=== PATIENT | male | born 1995 | race Asian ===

== ENCOUNTER 2017-04-27 09:06 | Emergency (ER) | payer OTHER ==
[~2017-04-27] VITALS: Ht 182.9 cm; Wt 87.2 kg
[2017-04-27 09:11] VITALS: Ht 182.9 cm; Wt 87.2 kg
[2017-04-27] MEDS ORDERED: SODIUM CHLORIDE 0.9% 1000ML 1,000 ML IV STA (09:39)
[2017-04-27] MEDS ORDERED: ONDANSETRON INJ 2 MG/ML 2 ML VIAL IV STA (09:53)
[2017-04-27] MEDS ORDERED: MoRPHine SULFATE 10 MG/ML CARP/VIAL IV STA (09:53)
[2017-04-27 09:54] LABS: BASO % 0.4 %; BASO ABS # 0.02 K/uL (0-0.2); COMPLETE YES; EOS % 4.1 %; HEMATOCRIT 46.6 % (42-52); IG% 0.2 %; LYMPH % 31.5 %; LYMPH ABS # 1.62 K/uL (1.2-3.4); MEAN CELL VOLUME 85.3 fL (80-100); MEAN CORPUSCULAR HEMOGLOBIN 28.8 pg (25-34); MEAN CORPUSCULAR HGB CONC 33.7 g/dl (32-36); MEAN PLATELET VOLUME 10.7 fL (7.4-10.4); MONO % 8.2 %; NEUT % 55.6 %; PLATELET COUNT 230 K/uL (130-400); RED BLOOD COUNT 5.46 M/uL (4.7-6.1); WHITE BLOOD COUNT 5.15 K/uL (4.8-10.8)
[2017-04-27] MEDS ORDERED: TAMSULOSIN HCL 0.4 MG CAP PO ONE (10:00)
--- NOTE | 2017-04-27 10:22 | DIAGNOSTIC IMAGING REPORT ---
CT OF THE ABDOMEN AND PELVIS WITHOUT CONTRAST, STONE PROTOCOL CLINICAL HISTORY: Right flank pain. COMPARISON STUDY: None. TECHNIQUE: Helical axial images of the abdomen and pelvis were obtained without IV or oral contrast according to renal stone protocol. A dose lowering technique was utilized adhering to the principles of ALARA. FINDINGS: A 4 mm x 2 mm proximal right ureteral calculus, located at the L4 level, results in mild right hydroureteronephrosis with mild perinephric and periureteral infiltration. Two small left renal calculi measure up to 3 mm. There are no left ureteral calculi. Unenhanced images of the liver, spleen, adrenal glands and pancreas are normal. There is no evidence for a bowel obstruction. The appendix is normal. There is no ascites. No suspicious skeletal lesions are identified. IMPRESSION: 1. 4 mm x 2 mm proximal right ureteral calculus which results in mild right hydroureteronephrosis. 2. Left-sided nephrolithiasis. Electronically signed by: Bao Trinidad M.D. 04/27/2017 10:20 AM Dictated Date/Time: 04/27/2017 10:14 AM
[2017-04-27 10:23] LABS: URINE APPEARANCE CLEAR (CLEAR); URINE BILIRUBIN NEG (NEG); URINE COLOR YELLOW; URINE NITRITE NEG (NEG); URINE SPECIFIC GRAVITY 1.026 (1.000-1.030); UROBILINOGEN NEG (NEG); ZZUR CULT IF INDIC CLEAN CATCH NO
[2017-04-27 10:25] LABS: MANUAL MICROSCOPIC REQUIRED? NO; REVIEW REQ? NO
[2017-04-27] MEDS ORDERED: ACETAMINOPHEN 500 MG TAB PO STA (10:41)
[2017-04-27] MEDS ORDERED: TAMS0.4C38 PO (11:11)
[2017-04-27] MEDS ORDERED: HYDR-5688 PO (11:11)
[2017-04-27] MEDS ORDERED: ONDA4TAB10 SL (11:11)
[2017-04-27 11:18] LABS: BUN/CREATININE RATIO 9.4 (10-20); CALCIUM 9.5 mg/dl (8.5-10.1); CREATININE 1.2 mg/dl (0.60-1.40); POTASSIUM 3.8 mmol/L (3.5-5.1)
--- NOTE | 2017-04-27 11:24 | EMERGENCY ROOM VISIT NOTE ---
History First contact with patient: 09:21 Chief Complaint: FLANK PAIN Stated Complaint: RT SIDED FLANK/BACK PAIN History of Present Illness The patient is a 21 year old male who presents to the Emergency Room with complaints of right flank pain which started at 7:30 this morning. She states he states it started in the back and then radiated into the groin. He rated the pain at a 9-10. The patient went to [facility] for his symptoms and was given Toradol 60 mg IM. He states his pain went down to a 1 out of 10. The patient denies any urinary symptoms of frequency, urgency, dysuria or hematuria. The patient denies any nausea or vomiting. The patient was told to come to the emergency room from [facility]. The patient does admit that he had similar symptoms on Thursday that lasted about 30 minutes the patient denies any history of kidney stones. The patient denies any family history of kidney stones. The patient denies any diarrhea. Review of Systems 10 system review was performed and was negative unless stated otherwise history of present illness. Social History Smoking Status: Never Smoker Alcohol Use: none Drug Use: none Marital Status: single Occupation Status: [employer] student Current/Historical Medications Scheduled Ondasetron Odt (Zofran Odt), 4 MG SL Q6H Tamsulosin Hcl (Flomax), 0.4 MG PO DAILY Scheduled PRN Hydrocodone/Acetaminophen 5MG/325MG (Wilcox 5MG/325MG), 1-2 TABLET PO Q6 PRN for Pain Physical Exam Vital Signs Date Time Temp Pulse Resp B/P (MAP) Pulse Ox O2 Delivery O2 Flow Rate FiO2 04/27/17 10:35 38.6 69 16 132/77 97 04/27/17 09:11 36.6 70 18 138/84 97 Room Air Physical Exam GENERAL: 21-year-old male appears in no acute distress. MENTAL Status: Alert and oriented 3. MOUTH: Mucosa is moist NECK: Supple, no lymphadenopathy noted. No carotid bruits noted. LUNGS: Clear auscultation without wheezes rales or rhonchi. CARDIAC: Regular rate and rhythm without murmur. Pulses is full and equal throughout. BACK: Right CVA tenderness noted. ABDOMEN: Positive bowel sounds all 4 quadrants. Soft, nontender to palpation without organomegaly or masses. EXTREMITIES: No cyanosis or edema noted. Medical Decision & Procedures ER Provider Diagnostic Interpretation: CT OF THE ABDOMEN AND PELVIS WITHOUT CONTRAST, STONE PROTOCOL CLINICAL HISTORY: Right flank pain. COMPARISON STUDY: None. TECHNIQUE: Helical axial images of the abdomen and pelvis were obtained without IV or oral contrast according to renal stone protocol. A dose lowering technique was utilized adhering to the principles of ALARA. FINDINGS: A 4 mm x 2 mm proximal right ureteral calculus, located at the L4 level, results in mild right hydroureteronephrosis with mild perinephric and periureteral infiltration. Two small left renal calculi measure up to 3 mm. There are no left ureteral calculi. Unenhanced images of the liver, spleen, adrenal glands and pancreas are normal. There is no evidence for a bowel obstruction. The appendix is normal. There is no ascites. No suspicious skeletal lesions are identified. IMPRESSION: 1. 4 mm x 2 mm proximal right ureteral calculus which results in mild right hydroureteronephrosis. 2. Left-sided nephrolithiasis. Electronically signed by: Bao Trinidad M.D. 04/27/2017 10:20 AM Laboratory Results 04/27/17 09:20 Red Blood Count 5.46, Mean Corpuscular Volume 85.3, Mean Corpuscular Hemoglobin 28.8, Mean Corpuscular Hemoglobin Concent 33.7, Mean Platelet Volume 10.7, Neutrophils (%) (Auto) 55.6, Lymphocytes (%) (Auto) 31.5, Monocytes (%) (Auto) 8.2, Eosinophils (%) (Auto) 4.1, Basophils (%) (Auto) 0.4, Neutrophils # (Auto) 2.87, Lymphocytes # (Auto) 1.62, Monocytes # (Auto) 0.42, Eosinophils # (Auto) 0.21, Basophils # (Auto) 0.02 04/27/17 09:20 Test 04/27/17 09:20 04/27/17 10:02 White Blood Count 5.15 K/uL (4.8-10.8) Red Blood Count 5.46 M/uL (4.7-6.1) Hemoglobin 15.7 g/dL (14.0-18.0) Hematocrit 46.6 % (42-52) Mean Corpuscular Volume 85.3 fL (80-100) Mean Corpuscular Hemoglobin 28.8 pg (25-34) Mean Corpuscular Hemoglobin Concent 33.7 g/dl (32-36) Platelet Count 230 K/uL (130-400) Mean Platelet Volume 10.7 fL (7.4-10.4) Neutrophils (%) (Auto) 55.6 % Lymphocytes (%) (Auto) 31.5 % Monocytes (%) (Auto) 8.2 % Eosinophils (%) (Auto) 4.1 % Basophils (%) (Auto) 0.4 % Neutrophils # (Auto) 2.87 K/uL (1.4-6.5) Lymphocytes # (Auto) 1.62 K/uL (1.2-3.4) Monocytes # (Auto) 0.42 K/uL (0.11-0.59) Eosinophils # (Auto) 0.21 K/uL (0-0.5) Basophils # (Auto) 0.02 K/uL (0-0.2) RDW Standard Deviation 38.7 fL (36.4-46.3) RDW Coefficient of Variation 12.5 % (11.5-14.5) Immature Granulocyte % (Auto) 0.2 % Immature Granulocyte # (Auto) 0.01 K/uL (0.00-0.02) Anion Gap 5.0 mmol/L (3-11) Est Creatinine Clear Calc Drug Dose 107.8 ml/min Estimated GFR () 100.3 Estimated GFR (Non- 86.5 BUN/Creatinine Ratio 9.4 (10-20) Calcium Level 9.5 mg/dl (8.5-10.1) Total Bilirubin 0.4 mg/dl (0.2-1) Direct Bilirubin 0.1 mg/dl (0-0.2) Aspartate Amino Transf (AST/SGOT) 19 U/L (15-37) Alanine Aminotransferase (ALT/SGPT) 41 U/L (12-78) Alkaline Phosphatase 60 U/L (45-117) Total Protein 7.8 gm/dl (6.4-8.2) Albumin 4.4 gm/dl (3.4-5.0) Lipase 140 U/L (73-393) Urine Color YELLOW Urine Appearance CLEAR (CLEAR) Urine pH 6.0 (4.5-7.5) Urine Specific [place] 1.026 (1.000-1.030) Urine Protein TRACE (NEG) Urine Glucose (UA) NEG (NEG) Urine Ketones NEG (NEG) Urine Occult Blood 3+ (NEG) Urine Nitrite NEG (NEG) Urine Bilirubin NEG (NEG) Urine Urobilinogen NEG (NEG) Urine Leukocyte Esterase NEG (NEG) Urine WBC (Auto) 1-5 /hpf (0-5) Urine RBC (Auto) >30 /hpf (0-4) Urine Hyaline Casts (Auto) 1-5 /lpf (0-5) Urine Epithelial Cells (Auto) 10-20 /lpf (0-5) Urine Bacteria (Auto) NEG (NEG) Medications Administered Medications (Trade) Dose Ordered Sig/Adrian Route Start Time Stop Time Status Last Admin Dose Admin Sodium Chloride 1,000 ml @ 999 mls/hr Q1H1M STAT IV 04/27/17 09:39 04/27/17 10:39 DC 04/27/17 10:00 999 MLS/HR Morphine Sulfate (MoRPHine SULFATE INJ) 6 mg NOW STAT IV 04/27/17 09:53 04/27/17 09:55 DC 04/27/17 10:01 6 MG Ondansetron HCl (Zofran Inj) 4 mg NOW STAT IV 04/27/17 09:53 04/27/17 09:55 DC 04/27/17 10:00 4 MG Tamsulosin HCl (Flomax Cap) 0.4 mg NOW ONCE PO 04/27/17 10:00 04/27/17 10:01 DC 04/27/17 10:06 0.4 MG Acetaminophen (Tylenol Tab) 1,000 mg NOW STAT PO 04/27/17 10:41 04/27/17 10:42 DC 04/27/17 10:54 1,000 MG ED Course The patient was evaluated. IV access was obtained. The patient was given 1 L normal saline wide-open. Originally he declined pain medication but later was in pain and therefore was given morphine 6 mg IV and Zofran 4 mg IV push. The patient was given Tylenol 1 g by mouth for fever. He was also given Flomax 0.4 mg by mouth. CBC and differential, renal profile, LFTs and lipase levels were ordered. Urinalysis was ordered and showed some blood but no bacteria. Culture is pending. Labs are reviewed and were unremarkable.. CT stone study was ordered interpreted by the radiologist and myself as above with a 4 mm proximal right ureteral calculi and 2 small calculi within the left kidney. The patient was re- evaluated and was feeling better.. The patient was informed of all findings and discharged home in stable condition. Medical Decision Differential diagnosis include UTI, pyelonephritis, ureteral calculi, muscular strain [place] Drug Monitoring Program Search Results: patient reviewed within database Medication Reconcilliation Current Medication List: was personally reviewed by me Blood Pressure Screening Patient's blood pressure: Normal blood pressure Impression Primary Impression: Ureteral calculus, right Departure Information Dispostion Home / Self-Care Condition GOOD Prescriptions Hydrocodone/Acetaminophen 5MG/325MG (Wilcox 5MG/325MG) Tab 1-2 TABLET PO Q6 Y for Pain, #20 TAB For Initial Treatment Prov: Mily Dubon PA-C 04/27/17 Tamsulosin Hcl (FLOMAX) 0.4 Mg Cap 0.4 MG PO DAILY for 7 Days, #7 CAP Prov: Mily Dubon PA-C 04/27/17 Ondasetron Odt (ZOFRAN ODT) 4 Mg Tab 4 MG SL Q6H for Nausea, #14 TAB Prov: Mily Dubon PA-C 04/27/17 Referrals No Doctor, Assigned (PCP) [facility] Forms HOME CARE DOCUMENTATION FORM, IMPORTANT VISIT INFORMATION Patient Instructions Kidney Stones - [facility], [facility] Additional Instructions Drink a lot of water. Ibuprofen 600 mg every 6 hours with food for pain. For more severe pain take Wilcox as directed. Do not drive while taking the Wilcox. Take Flomax daily as directed. Strain all urine. Take Zofran as needed for nausea. If you do not pass the stone by Thursday morning, appointment with [facility] on Thursday for referral to a urologist. If symptoms worsen in the interim, return to ER.
[2017-04-27] MEDS ORDERED: MoRPHine SULFATE 4 MG/ML 1 ML CARP\\VIAL IV STA (11:44)
[2017-04-27 11:54] VITALS: TEMP 36.8
[2017-04-27 12:14] VITALS: BP 126/72; PULSE 75; O2SAT 98
== END 2017-04-27 12:17 | disposition home or self-care (01) ==
LOC: C.EDB 09:08 → C.EDA 12:17
DX: N20.1 Calculus of ureter (principal); N20.0 Calculus of kidney; R50.9 Fever, unspecified

== ENCOUNTER → 2017-07-08 | Outpatient (CLI) | payer OTHER ==
[~2017-07-08] MED LIST: HYDR-5688 PO; ONDA4TAB10 SL
--- NOTE | 2017-07-08 12:30 | DIAGNOSTIC IMAGING REPORT ---
KUB CLINICAL HISTORY: N20.0 [id number] History of kidney [id number] COMPARISON STUDY: CT scan dated 04/27/2017 FINDINGS: There is no pathologic bowel dilatation. The renal shadows are partially obscured overlying bowel gas and fecal material. No urinary tract calculi are visualized on conventional radiographic imaging. IMPRESSION: No urinary tract calculi are visualized on conventional radiographic imaging. Electronically signed by: Estevan Roa M.D. 07/08/2017 12:28 PM Dictated Date/Time: 07/08/2017 12:28 PM
--- NOTE | 2017-07-08 12:35 | DIAGNOSTIC IMAGING REPORT ---
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 FINDINGS: Right kidney: Maximum dimension 11.8 cm. No evidence for hydronephrosis. Normal corticomedullary differentiation and cortical thickness. Left kidney: Maximum dimension 11.9 cm. No evidence for hydronephrosis. Normal corticomedullary differentiation and cortical thickness. Bladder: No bladder wall thickening. The bilateral ureteral jets were identified. IMPRESSION: Normal renal ultrasound. The above report was generated using voice recognition software. It may contain grammatical, syntax or spelling errors. Electronically signed by: Jeronimo Dubon M.D. 07/08/2017 12:33 PM Dictated Date/Time: 07/08/2017 12:33 PM
== END | disposition home or self-care (01) ==
LOC: C.ULTR 11:59
PROVIDERS: ATTEND Urology
DX: N20.0 Calculus of kidney (principal); Z87.442 Personal history of urinary calculi